=== PATIENT | female | born 1975 | race African-American/Black ===

== ENCOUNTER 2017-12-01 17:41 | Emergency (ER) | payer MEDICAID ==
[~2017-12-01] VITALS: Ht 165.1 cm; Wt 81.8 kg
[~2017-12-01 17:41] MED LIST: BACL10TA PO; CIPR500T4 PO; GLUCTAB PO; NORV10TA PO
[2017-12-01 18:17] VITALS: BP 126/72; PULSE 70; RESP 18; TEMP 98.7; O2SAT 100
--- NOTE | 2017-12-04 09:29 | PD ---
Physical Exam Date Seen by Provider: Dec 01, 2017 Time Seen by Provider: 21:58 Narrative 42-year-old female presents to the emergency department stating that after she took her prescribed medications at 12:00 today, she felt fatigued and dizzy. She denies any symptoms at this time. She states she would like to know what caused it and if it was the medications. Current pain is 0/10. Mild to moderate severity. Data Data Last Documented VS Vital Signs Date Time Temp Pulse Resp B/P (MAP) Pulse Ox O2 Delivery O2 Flow Rate FiO2 12/01/17 18:17 98.7 70 18 126/72 (90) 100 MDM Supervised Visit with HARMONY: No Narrative Course 42-year-old female presents to the emergency department for evaluation after she felt fatigued and dizzy earlier today. She currently has no symptoms. Patient is initially seen in triage. Patient left AMA before she can be moved to medical bed Diagnosis Primary Impression: Left against medical advice Patient Instructions: General Instructions Departure Forms: Tests/Procedures Disposition: 07 AGAINST MEDICAL ADVICE Cassia Atwood Dec 04, 2017 09:29
== END 2017-12-01 21:56 | disposition left against medical advice (07) ==
LOC: NETRI 17:41
DX: Z53.21 Procedure and treatment not carried out due to patient leaving prior to being seen by health care provider (principal); R53.83 Other fatigue
CPT/HCPCS: 99281

== ENCOUNTER 2018-02-18 02:14 | Emergency (ER) | payer OTHER, MEDICAID ==
[2018-02-18 02:18] VITALS: BP 159/73; PULSE 77; RESP 16; TEMP 98.8; O2SAT 98
[2018-02-18] MEDS ORDERED: AMLO2.5T PO (02:37)
[2018-02-18] MEDS ORDERED: METF500T PO (02:37)
[2018-02-18] MEDS ORDERED: ATOR10TA15 PO (02:37)
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
[2018-02-18] MEDS ORDERED: BACL10TA PO (03:37)
[2018-02-18] MEDS ORDERED: IBUP1TAB7 PO (03:37)
--- NOTE | 2018-02-18 04:00 | RADRPT ---
EXAM DATE: 02/18/2018 3:23 AM EDT AGE/SEX: 42 years / Female INDICATIONS: Lower back pain. CLINICAL DATA: This is the patient's initial encounter. Patient reports that signs and symptoms have been present for 2 days and indicates a pain score of 2/10. MEDICAL/SURGICAL HISTORY: None. None. COMPARISON: No prior exams available for comparison. FINDINGS: The vertebral bodies are in normal alignment without evidence of compression deformity Bone density is normal for age. Soft tissues are grossly intact. CONCLUSION: Negative examination. Electronically signed by: Geoffrey Llanos MD 02/18/2018 3:58 AM EDT
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
== END 2018-02-18 04:24 | disposition home or self-care (01) ==
LOC: NEPD 02:14
DX: S16.1XXA Strain of muscle, fascia and tendon at neck level, initial encounter (principal); S39.012A Strain of muscle, fascia and tendon of lower back, initial encounter; E11.9 Type 2 diabetes mellitus without complications; I10 Essential (primary) hypertension; Z79.899 Other long term (current) drug therapy; V43.52XA Car driver injured in collision with other type car in traffic accident, initial encounter
CPT/HCPCS: 72100; 72125; 99284